=== PATIENT | female | born 1995 | race Caucasian/White ===

== ENCOUNTER 2021-11-11 14:59 | Outpatient (CLI) | payer OTHER, MEDICAID | END 2021-11-11 15:00 | disposition home or self-care (01) | LOC: LAB 14:59 | PROVIDERS: ATTEND Nurse Practitioner Obstetrics & Gynecology | DX: R33.8 Other retention of urine (principal) | CPT/HCPCS: 36415; 85049 ==

== ENCOUNTER 2021-12-06 14:51 | Outpatient (CLI) | payer OTHER, MEDICAID ==
[2021-12-06 15:14] LABS: BASOPHILS % (AUTO) 0.1 %; EOSINOPHILS % (AUTO) 0.5 %; HCT - HEMATOCRIT 39.6 % (37.0-47.0); MEAN CORPUSCULAR HEMOGLOBIN 30.7 pg (27.0-31.0); MEAN CORPUSCULAR HGB CONC 32.8 g/dL (32.0-36.0); MEAN CORPUSCULAR VOLUME 93.4 fL (81.0-99.0); MEAN PLATELET VOLUME 12.6 fL (7.9-10.8); MONOCYTES # (AUTO) 0.5 10^3/uL (0.0-1.0); MONOCYTES % (AUTO) 6.1 %; NEUTROPHILS # (AUTO) 7.2 10^3/uL (1.5-6.6); NEUTROPHILS % (AUTO) 81.7 %; PLT - PLATELET COUNT 123 10^3/uL (130-450); RED BLOOD COUNT 4.24 10^6/uL (4.20-5.40); RED CELL DISTRIBUTION WIDTH 12.7 % (12.0-15.0); WHITE BLOOD COUNT 8.9 x10^3/uL (4.8-10.8)
[2021-12-06 15:21] VITALS: BP 109/69
[2021-12-06 15:27] LABS: BILIRUBIN,URINE NEGATIVE (NEGATIVE); GLUCOSE, URINE (UA) NEGATIVE (NEGATIVE); KETONES,URINE (UA) NEGATIVE (NEGATIVE); LEUKOCYTE ESTERASE, URINE NEGATIVE (NEGATIVE); NITRITE,URINE NEGATIVE (NEGATIVE); OCCULT BLOOD,URINE NEGATIVE (NEGATIVE); PROTEIN,URINE NEGATIVE (NEGATIVE); UROBILINOGEN,URINE 0.2 (NORMAL) E.U./dL (NORMAL)
[2021-12-06 15:28] LABS: CLARITY,URINE CLEAR (CLEAR)
[2021-12-06 15:28] LABS: ALBUMIN 3.1 g/dL (3.2-5.5); BILIRUBIN,TOTAL 0.6 mg/dL (0.2-1.0); CREATININE 0.7 mg/dL (0.4-1.0); POTASSIUM 3.7 mmol/L (3.5-5.0); TOTAL PROTEIN 6.3 g/dL (6.7-8.2)
[2021-12-06 15:38] LABS: BACTERIA,URINE Few /HPF (None Seen); RBC,URINE 0-5 /HPF (0-5); SQUAMOUS EPITHELIAL CELL,UR MOD Squamous (<= Few); WBC,URINE 0-3 /HPF (0-5)
--- NOTE | 2021-12-06 16:09 | PROVIDER PROGRESS NOTE ---
- HPI Chief Complaint: Pain, non-labor Current : Vital Signs Temperature 36.6 C 12/06/21 15:20 Heart Rate 93 12/06/21 15:20 Respiratory Rate 17 12/06/21 15:20 Blood Pressure 109/69 12/06/21 15:20 O2 Saturation 100 12/06/21 15:20 Temperature 36.6 C 12/06/21 15:21 Heart Rate 93 12/06/21 15:20 Respiratory Rate 17 12/06/21 15:20 Blood Pressure 109/69 12/06/21 15:20 O2 Saturation 100 12/06/21 15:20 If not protocol: Oxygen Flow, liters/minute - Procedures OB Procedure Performed: NST Diagnosis/Indication for NST: labor - Plan Plan: HPI: Verónica is a 26yo @ 36.3wks gestation who presents to [facility] with concerns for upper abdominal pain that is sharp, wave-like and has been present intermittently since early this morning at 0330am. She denies vaginal bleeding or leakage of fluid. She reports +FM. She states she can feel contractions occasionally that just seem like raymond calvin contractions and the pain she is experiencing currently is not the same. She rates the pain 8/10. She has taken TUMS, eaten fresh pineapple, rested, taken a warm bath, and was able to get a little relief for a couple of hours this morning but then it came back today around 1130 and seemed more severe. She denies fever, body aches, or chills. She denies constipation or diarrhea. She reports mild headache but states she gets them occasionally because she does not wear her glasses when she should. She states she feels adequately hydrated and she denies urinary symptoms. NST performed 12/06/2021 NST read 12/06/2021 NST reactive. FHR baseline 130, moderate variability, + accels, no decels One contraction appreciated via tocometry which pt appreciates as mild. Soft resting tone. SVE 1/50/high, vertex. CBC WNL (PLT 124 secondary to gestational thrombocytopenia - stable from last draw 2 weeks ago) CMP WNL Vital signs WNL. Normocephalic, atraumatic, heart RRR w/o M/G/R, lungs CTAB, abdomen gravid soft and nontender, trace edema to LE's bilaterally. Mood is good. Assessment: 26yo @ 36.3wks gestation Gestational thombocytopenia Mid upper abdominal pain - labor and pre-eclamspia ruled out. Suspect gas pains. Plan: Pt released home with precautions. Recommended simethicone PRN pain and continuation of TUMS PRN. Reviewed warning s/sx and when to present. Pt verbalized understanding and agrees to above plan. She denies further questions or concerns at this time. FINAL DIAGNOSIS: Abdominal pain
== END 2021-12-06 16:20 | disposition home or self-care (01) ==
LOC: WFO 14:51 → FBP 14:54 → WFO 16:20
PROVIDERS: ATTEND Nurse Practitioner Obstetrics & Gynecology
DX: O99.891 Other specified diseases and conditions complicating pregnancy (principal); R10.9 Unspecified abdominal pain; O99.113 Other diseases of the blood and blood-forming organs and certain disorders involving the immune mechanism complicating pregnancy, third trimester; D69.6 Thrombocytopenia, unspecified; Z3A.36 36 weeks gestation of pregnancy
CPT/HCPCS: 36415; 59025; 80053; 81001; 85025; 99215

== ENCOUNTER 2021-12-27 11:55 | Inpatient (IN) | payer OTHER, MEDICAID ==
--- NOTE | 2021-12-27 12:31 | PROCEDURE REPORT ---
- HPI Diagnosis/Indication for NST: Other - NST Procedure NST Procedure Start Time 15:17 Stop Time 16:15 - Results and Plan Plan: Verónica presents with c/o contractions. She reports contractions have increased in frequency and intensity since early this morning. She lost her mucus plug this morning. She denies vaginal bleeding but did experience some pink discharge when she went to the bathroom last. She does report some leakage of clear fluid this morning and again just now after using the bathroom. She reports +FM. She states the majority of her contractions are in her back but does occasionally feel them in her front as well. NST performed 12/27/2021 NST read 12/27/2021 NST reactive. FHR baseline 140s, moderate variability, + accels, no decels Contractions palpate moderate every 5-8 minutes with soft resting tone SVE 3/90/-1, posterior and vertex. ROM plus - negative Pt admitted for expectant management. She is GBS positive and had difficulty with transportation secondary to poor road conditions. Pt verbalized understanding and agrees to above plan. She denies further questions or concerns at this time.
[2021-12-27 12:57] LABS: RUPTURE OF MEMBRANES PLUS NEGATIVE (NEGATIVE)
[2021-12-27] MEDS ORDERED: NIFEdipine 10 MG CAPSULE PO PRN (13:18)
[2021-12-27] MEDS ORDERED: METHYLERGONOVINE 0.2 MG/ML VIAL IM PRN (13:18)
[2021-12-27] MEDS ORDERED: OXYTOCIN/SODIUM CHLORIDE 500 ML IV PRN (13:18)
[2021-12-27] MEDS ORDERED: miSOPROStoL 200 MCG TABLET PR PRN (13:18)
[2021-12-27] MEDS ORDERED: hydrALAZINE INJ 20 MG/ML VIAL IVP PRN ×2 (13:18)
[2021-12-27] MEDS ORDERED: fentaNYL 100 MCG/2 ML VIAL IVP PRN (13:18)
[2021-12-27] MEDS ORDERED: miSOPROStoL 200 MCG TABLET BC PRN (13:18)
[2021-12-27] MEDS ORDERED: OXYTOCIN 10 UNIT/ML VIAL IM PRN (13:18)
[2021-12-27] MEDS ORDERED: TRANEXAMIC ACID IN NACL 1,000 MG/100 ML BAG IV PRN (13:18)
[2021-12-27] MEDS ORDERED: SODIUM CHLORIDE FLUSH 0.9% 10 ML SYRINGE IVP PRN (13:18)
[2021-12-27] MEDS ORDERED: lidocaine 1% 20 ML MDV ID PRN (13:18)
[2021-12-27] MEDS ORDERED: LABETALOL 20 MG/4 ML SYRINGE IVP PRN ×3 (13:18)
[2021-12-27] MEDS ORDERED: CARBOPROST TROMETHAMINE 250 MCG/ML AMP IM PRN (13:18)
[2021-12-27] MEDS ORDERED: TERBUTALINE 1 MG/ML VIAL SUBQ PRN (13:18)
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
[2021-12-27] MEDS ORDERED: AMPICILLIN 2 GM in SODIUM CHLORIDE 0.9% MINIBAG 100 ML IV ONE (14:00)
[2021-12-27] MEDS ORDERED: SODIUM CHLORIDE FLUSH 0.9% 10 ML SYRINGE IVP SCH (14:00)
[2021-12-27 14:09] LABS: BASOPHILS % (AUTO) 0.2 %; EOSINOPHILS % (AUTO) 0.2 %; HCT - HEMATOCRIT 38.9 % (37.0-47.0); HGB - HEMOGLOBIN 13.1 g/dL (12.0-16.0); LYMPHOCYTES # (AUTO) 0.9 10^3/uL (1.5-3.5); LYMPHOCYTES % (AUTO) 6.9 %; MEAN CORPUSCULAR HEMOGLOBIN 31.4 pg (27.0-31.0); MEAN CORPUSCULAR HGB CONC 33.7 g/dL (32.0-36.0); MEAN CORPUSCULAR VOLUME 93.3 fL (81.0-99.0); MEAN PLATELET VOLUME 13.5 fL (7.9-10.8); MONOCYTES # (AUTO) 0.7 10^3/uL (0.0-1.0); NEUTROPHILS # (AUTO) 11.3 10^3/uL (1.5-6.6); NEUTROPHILS % (AUTO) 87.2 %; PLT - PLATELET COUNT 140 10^3/uL (130-450); RED BLOOD COUNT 4.17 10^6/uL (4.20-5.40); RED CELL DISTRIBUTION WIDTH 12.8 % (12.0-15.0); WHITE BLOOD COUNT 12.9 x10^3/uL (4.8-10.8)
[2021-12-27] MEDS ORDERED: LACTATED RINGERS 1,000 ML ONE (14:15)
[2021-12-27] MEDS: AMPICILLIN 1 GM in SODIUM CHLORIDE 0.9% MINIBAG 100 ML IV SCH ×2 (17:55→22:05)
--- NOTE | 2021-12-27 18:52 | PROVIDER PROGRESS NOTE ---
Labor Progress Note - Uterine Monitoring Uterine Monitoring Mode: positive: External toco Contraction Frequency (min/apart): 5-7 Contraction Intensity: positive: Moderate Uterine Resting Tone: positive: Soft - Monitoring Monitor Mode: positive: External ultrasound Heart Rate Baseline: 130 Heart Rate Variability: positive: Moderate (6-25 bmp) Accelerations: positive: Present, 15x15 Decelerations: positive: None Strip Review: positive: Category I - Vaginal Exam Dilation (in cm): 4 Effacement (%): 90 Station: -1 Cervical Position: Posterior - Labor Progress Note Labor Progress Note/Additional Text: S: Breathing through contractions. Feeling the contractions are getting longer but remaining about the same in intensity. She is coping well and her mom is supportive at the bedside. O: FHR baseline 130s, moderate variability, + accels, no decels Contractions palpate moderate every 5-7 minutes with soft resting tone SVE 4/90/-1, posterior. Vertex. AROM moderate amount of clear fluid A: 26yo @ 39.3wks gestation by LMP c/w 8.6wk U/S Active labor GBS positive FHR Category I P: Continue expectant management. Intermittent heart rate auscultation. Jacuzzi PRN. Nitrous oxide PRN. Epidural per maternal request. Anticipate .
[2021-12-27] MEDS ORDERED: ROPIVACAINE 0.2% 200 MG/100 ML BAG EP ONE (19:43)
[2021-12-27] MEDS ORDERED: LACTATED RINGERS 1,000 ML IV SCH (20:00)
--- NOTE | 2021-12-27 20:37 | ANESTHESIA ---
Pre-Anesthesia VS, & Labs - Diagnosis active labor - Procedure labor epidural Vital Signs: Temp Pulse Resp BP Pulse Ox O2 Flow Rate 36.8 C 87 18 124/81 H 12/27/21 17:04 12/27/21 17:04 12/27/21 12:38 12/27/21 12:38 Height: 5 ft 4 in Weight (kg): 71.668 kg Body Mass Index: 27.1 BMI Classification: Overweight - NPO Other (eating and drinking until epidural) - Is Patient ?: Yes - Lab Results Current Lab Results: Laboratory Tests 12/27/21 15:21: Blood Type Recheck A POSITIVE 12/27/21 12:50: WBC 12.9 H, RBC 4.17 L, Hgb 13.1, Hct 38.9, MCV 93.3, MCH 31.4 H , MCHC 33.7, RDW 12.8, Plt Count 140, MPV 13.5 H, Neut # (Auto) 11.3 H, Lymph # (Auto) 0.9 L, Tripp # (Auto) 0.7, Eos # (Auto) 0.0, Baso # (Auto) 0.0, Absolute Nucleated RBC 0.00, Nucleated RBC % 0.0 12/27/21 12:50: Blood Type A POSITIVE, Antibody Screen NEGATIVE Fish Bones: 12/27/21 12:50 Home Medications and Allergies Active Medications Carboprost Tromethamine (Carboprost Tromethamine 250 Mcg/Ml Amp) 250 mcg IM .ONCE PRN PRN Reason: Hemorrhage Fentanyl (Fentanyl 100 Mcg/2 Ml Vial) 50 mcg IVP Q1H PRN PRN Reason: Severe Pain (score 7-10) Hydralazine HCl (Hydralazine Inj 20 Mg/Ml Vial) 5 - 10 mg IVP Q20M PRN; Protocol PRN Reason: SBP> or= 160 OR DBP> or= 110 Hydralazine HCl (Hydralazine Inj 20 Mg/Ml Vial) 10 mg IVP .ONCE PRN; Protocol PRN Reason: SBP> or= 160 OR DBP> or= 110 Oxytocin/Sodium Chloride (Pitocin/Sodium Chloride) 500 mls @ 999 mls/hr IV PRN PRN; Protocol PRN Reason: POST- HEMORR PREVENTION Tranexamic Acid (Tranexamic 1,000 Mg/100ml-Nacl) 1,000 mg in 100 mls @ 600 mls/hr IV Q30M PRN PRN Reason: EBL >1200mL and within 3hr Ampicillin Sodium 1 gm/ Sodium (Chloride) 100 mls @ 200 mls/hr IV Q4H [facility] Last Infusion: 12/27/21 18:25 Dose: Infused Lactated Ringer's (Lr) 1,000 mls @ 125 mls/hr IV .Q8H [facility] Last Admin: 12/27/21 20:00 Dose: 125 mls/hr Labetalol HCl (Labetalol 20 Mg/4 Ml Syringe) 20 - 80 mg IVP Q10M PRN; Protocol PRN Reason: SBP> or= 160 OR DBP> or= 110 Labetalol HCl (Labetalol 20 Mg/4 Ml Syringe) 20 mg IVP .ONCE PRN; Protocol PRN Reason: SBP> or= 160 OR DBP> or= 110 Labetalol HCl (Labetalol 20 Mg/4 Ml Syringe) 20 - 40 mg IVP Q10M PRN; Protocol PRN Reason: SBP> or= 160 OR DBP> or= 110 Lidocaine HCl (Lidocaine 1% 20 Ml Mdv) 20 ml ID .ONCE PRN PRN Reason: PERINEAL REPAIR Stop: 12/30/21 13:18 Methylergonovine Maleate (Methylergonovine 0.2 Mg/Ml Vial) 0.2 mg IM .ONCE PRN PRN Reason: Hemorrhage Misoprostol (Misoprostol 200 Mcg Tablet) 600 mcg BC .ONCE PRN PRN Reason: Hemorrhage Misoprostol (Misoprostol 200 Mcg Tablet) 800 mcg FL .ONCE PRN PRN Reason: Hemorrhage Nifedipine (Nifedipine 10 Mg Capsule) 10 - 20 mg PO Q20M PRN; Protocol PRN Reason: SBP> or= 160 OR DBP> or= 110 Oxytocin (Oxytocin 10 Unit/Ml Vial) 10 unit IM .ONCE PRN PRN Reason: Step One if no IV access. Sodium Chloride (Sodium Chloride Flush 0.9% 10 Ml Syringe) 10 ml IVP PRN PRN PRN Reason: NEEDED PER PROVIDER ORDERS Sodium Chloride (Sodium Chloride Flush 0.9% 10 Ml Syringe) 10 ml IVP Q8H [facility] Last Admin: 12/27/21 17:56 Dose: 10 ml Terbutaline Sulfate (Terbutaline 1 Mg/Ml Vial) 0.25 mg SUBQ .ONCE PRN PRN Reason: Tachystole Allergies/Adverse Reactions: Allergies Allergy/AdvReac Type Severity Reaction Status Date / Time Pertussis Vaccines AdvReac Anaphylaxis Verified 12/27/21 12:57 Anes History & Medical History - Anesthetic History Anesthesia Complications: reports: No previous complications Family history of Anesthesia Complications: Denies Family history of Malignant Hyperthermia: Denies - Medical History Cardiovascular: reports: None (gestational thrombocytopenia) Smoking Status: Never smoker - Obstetrical History : 2 Parity: 1 Events: reports: None Complications: reports: None Exam General: Alert, Oriented x3, Cooperative Dental: WNL Mouth Openin Fingerbreadth Neck Mobility: Normal Mallampati classification: I Thyromental Distance: 4-6 cm Respiratory: Lungs clear Cardiovascular: Regular rate Plan Anesthesia Type: Epidural Consent for Procedure(s) Verified and Reviewed: Yes Code Status: Attempt Resuscitation ASA classification: 2-Mild systemic disease Is this case an emergency?: No
--- NOTE | 2021-12-27 20:38 | ANESTHESIA PROCEDURE NOTE ---
Anesthesia Epidural Template - Patient Report Patient Reports: positive: Pain controlled - Plan Plan: positive: Continue current management
[2021-12-27] MEDS ORDERED: NALOXONE 0.4 MG/ML VIAL IVP PRN (20:39)
[2021-12-27] MEDS ORDERED: NALBUPHINE 10 MG/ML AMP IVP PRN (20:39)
[2021-12-27] MEDS ORDERED: ePHEDrine 50 MG/ML VIAL IVP PRN (20:39)
[2021-12-27] MEDS ORDERED: ONDANSETRON 4 MG/2 ML VIAL IVP PRN (20:39)
[2021-12-27] MEDS ORDERED: diphenhydrAMINE INJ 50 MG/ML VIAL IVP PRN (20:39)
[2021-12-27] MEDS ORDERED: METOCLOPRAMIDE 10 MG/2 ML VIAL IVP PRN (20:39)
[2021-12-28] MEDS ORDERED: WITCH HAZEL/GLYCERIN 1 PAD TOP PRN (00:27)
[2021-12-28] MEDS ORDERED: HYDROCORTISONE 1% CREAM 28 GM TUBE PR PRN (00:27)
--- NOTE | 2021-12-28 00:33 | DELIVERY NOTE ---
Delivery Note - Labor Labor: positive: Augmented by ARM - Infant Delivery Method Delivery Method: positive: Spontaneous vaginal delivery - Presentation Presentation: positive: Vertex, ANNIE - right occiput anterior - Nuchal Cord Nuchal Cord: positive: None - Amniotic Fluid Description Amniotic Fluid Description: positive: Clear - Episiotomy Type Episiotomy Type: positive: None - Laceration Laceration: positive: None - Delivery Outcome Delivery Outcome: positive: Livebirth - Mellette : positive: Placed in direct skin contact with mother, Stimulated, Warmed, [place] used sex: positive: Female - Cord Cord: positive: 3 vessels - Placenta Placenta: positive: Intact, Spontaneous - Estimated Blood Loss Estimated Blood Loss (in cc): 300 - Post Delivery Events Post Delivery Events: positive: No post delivery events - Delivery Comments (Free Text/Narrative) Delivery Comments (Free Text/Narrative): Labor: This 26yo @ 39.4wks gestation by LMP c/w first trimester ultrasound presented on 12/27/2021 with c/o contractions. Upon arrival she was noted to be 3/90/-1, posterior and vertex with intact membranes. She was found to contraction every 5-8 minutes with soft resting tone. She was admitted for expectant management. She was augmented with AROM at 1830 on 12/27/2021 for a moderate amount of clear fluid. Epidural placed per maternal request. She received adequate GBS prophylaxis and is s/p 3 doses of ampicillin per protocol. She progressed spontaneously to c/c/+2 and pushing at 2358. : Normal of viable male on 12/28/2021 @ 0005. No nuchal cord. Apgars were 8/9 at 1 and 5 minutes respectively. Mellette stimulated, dried, and placed skin to skin. The umbilical cord was allowed to stop pulsating at which time it was doubly clamped by CNM and cut by the patient. Pitocin initiated for hemostatis. Gentle cord traction and fundal massage applied for active management of the third stage. Placenta delivered spontaneously and intact at 0011. 3VC. Cord blood was obtained. EBL 300mL. Fourth stage: Uterine fundus firm and there is no excessive bleeding. The perineum, cervix and vagina were inspected and noted to be intact. initiated. Family bonding well. Both mother and baby were left in stable condition.
[2021-12-28] MEDS: ACETAMINOPHEN 500 MG TABLET PO SCH ×4 (01:03→21:07)
[2021-12-28] MEDS: IBUPROFEN 800 MG TABLET PO SCH ×4 (01:03→21:07)
[2021-12-28] MEDS: DOCUSATE SODIUM 100 MG CAPSULE PO SCH (21:07)
[2021-12-29] MEDS: IBUPROFEN 800 MG TABLET PO SCH ×2 (02:57→08:09)
[2021-12-29] MEDS: ACETAMINOPHEN 500 MG TABLET PO SCH ×2 (05:24→13:02)
[2021-12-29] MEDS: DOCUSATE SODIUM 100 MG CAPSULE PO SCH (08:09)
--- NOTE | 2021-12-29 08:28 | Discharge Plan ---
Discharge Plan Problem Reviewed?: Yes Disposition: Home, Self Care Condition: Good Diet: Regular Activity Restrictions: No Restrictions Shower Restrictions: No Driving Restrictions: No Weight Bearing: Full Weight No Smoking: If you smoke, Please STOP! Call for help. Follow-up with: Jennifer Sewell CNM, ARNP [Provider Admit Priv/Credential] - 1 Week (phone visit scheduled 01/07/22 @ 11:45am)
--- NOTE | 2021-12-29 08:33 | DISCHARGE SUMMARY ---
Discharge Summary Condition at Discharge: Good Discharge Disposition: 01 Home, Self Care - HOSPITAL COURSE Hospital Course: Date of Admission: 12/27/2021 Date of Discharge: 12/29/2021 Diagnosis on Admission: 1. 26yo @ 39.0wks gestation 2. Active labor 3. Gestational thrombocytopenia 4. GBS negative 5. FHR Category I Diagnosis on Discharge: 1. 26yo PPD#1 s/p TSVD viable male 2. Intact perineum 3. Normal recovery Brief history: She is a patient of [facility] who presented on 12/27/2021 with c/o contractions. She was noted to contract ever 3-5 minutes and her cervix was 4/90/-1 and vertex with intact membranes. AROM for labor augmentation for a moderate amount of clear fluid. Epidural placed per maternal request. Pt progressed to spontaneously deliver a viable male infant on 12/28/2021 at 0005. EBL 300mL. Apgars were 8/9 at 1 and 5 minutes respectively. Perineum intact. She has been doing well in her course. She is ambulating and tolerating a regular diet. She is urinating without difficulty and her lochia is normal. Her pain is well controlled with oral medications. She is bonding well with her baby and without difficulty. She will be discharged home today on day #1 with instructions to continue taking her vitamin while and to continue taking ibuprofen and tylenol over the counter as needed for pain management. She intends to follow up with myself at [facility] in [place] in 1 week and again at 6 weeks or sooner if needed. She has been given precautions to call if she has any worsening fevers, chills, abdominal pain, increased vaginal bleeding or foul smelling vaginal lochia. Physical exam: Normocephalic, atraumatic. Heart RRR w/o M/G/R, lungs CTAB, abdomen soft and nontender with fundus firm at U-1. Perineum intact, light lochia rubra. Bilateral LE's no edema. Mood is good. - ALLERGIES Allergies/Adverse Reactions: Allergies Allergy/AdvReac Type Severity Reaction Status Date / Time Pertussis Vaccines AdvReac Anaphylaxis Verified 12/27/21 12:57 - LABS Result Diagrams: 12/27/21 12:50
[2021-12-29 08:50] VITALS: BP 121/69
--- NOTE | 2021-12-29 13:38 | Labor Flowsheet ---
Labor Flowsheet Datetime Report Generated by CPN: 12/29/2021 13:38 Datetime: 12/29/2021 00:27 VITAL SIGNS NBP Sys/Mary Jo/Mean (mmHg): 118 : 68 : 80 Pulse: 75 Datetime: 12/28/2021 00:33 Respirations: 22 Datetime: 12/28/2021 00:15 MEDICATIONS Pitocin (milliunits): Started @ (Annotations: Placenta has been delivered; pitocin bolus infusing) Datetime: 12/28/2021 00:08 Membranes Ruptured Date/Time: 12/27/2021 18:30 Cervical Ripening Agents Other: none Datetime: 12/28/2021 00:03 Pushing Progress: with Pushing; Pushing Effectively with Contractions Datetime: 12/28/2021 00:01 ASSESSMENT A Monitor Mode: Telemetry FHR Baseline Rate : 110 Variability: Moderate 6-25 bpm Accelerations: 10X10 Decelerations: Variable Category: Category II Comments: Pushing Pushing Position: Pushing with Contractions LaborFlag: Labor Datetime: 12/27/2021 23:58 VAGINAL EXAM Dilatation (cm): 10.0 Effacement (%): 100 Station: 2 Exam by: BRADFORD Sewell TEACHING Instructional Method: Demo; Patient Instructed; Family/Support Person Instructed; Verbalized Unders tanding Plan of Care: Plan of Care Discussed; Vaginal Delivery STAGE 2 Pushing: Coached on Pushing; No Urge to Push Datetime: 12/27/2021 23:56 Stage of : Labor I/O Interventions: Elam Discontinued (Annotations: 500ml urine in elam; elam removed) Provider Reviewed Strip: Yes Strip Reviewed by: BRADFORD Sewell COMMUNICATION Communication: Provider at Bedside Provider Notified (Name): Donato Notification Reason: Status Update; Status; Labor Status Communication Comments: Provider here for delivery Datetime: 12/27/2021 23:50 Actions for Decelerations: Side to Side PATIENT CARE Patient Position/Activity: HOB Lowered; Left Lateral Datetime: 12/27/2021 23:45 UTERINE ACTIVITY Monitor Mode: External Monitor Interventions for UA: [place] Adjusted Frequency (min): 2-3.5 Quality: Strong Duration (sec): 60-80 Pattern: Normal: <= 5 Contractions in 10 Minutes Resting Tone (Palpate): Relaxed FHR Baseline Changes: No Baseline Change PAIN Pain Scale: 0 Pain Presence: None/Denies Pain Type: N/A Pain Goal: 4 Pain Relief Measures: Epidural Given Pain Coping: Talking Through Contractions Comfort Measures: Family Support Datetime: 12/27/2021 23:35 Vaginal Bleeding: Normal Show Cervix, Consistency: Soft Cervix, Position: Anterior Datetime: 12/27/2021 23:30 ASSESSMENT B FHR Baseline Changes: No Baseline Change Variability: Moderate 6-25 bpm Accelerations: 15X15 Decelerations: None Category: Category I Datetime: 12/27/2021 23:28 Temperature (C): 36.0 Datetime: 12/27/2021 23:16 Anesthesia Level Check: T6- Xyphoid Anesthesia Comments: Comfortable with epidural Datetime: 12/27/2021 21:35 Temperature Route: Oral Datetime: 12/27/2021 20:07 Epidural Procedure Other: Pump Started Datetime: 12/27/2021 20:05 Epidural Positioning: Side Lying Datetime: 12/27/2021 19:58 Epidural Procedure: Test Dose Datetime: 12/27/2021 19:52 PROCEDURE TIME OUT Procedure Verify: Correct Patient Identity; Accurate Procedure Consent Form; Agreement on Procedure to be Done; Correct Patient Position Datetime: 12/27/2021 19:49 SpO2 (%): 99 Datetime: 12/27/2021 19:47 Pain Location: Abdomen Datetime: 12/27/2021 19:44 ANESTHESIA Anesthesia Plans: Epidural Datetime: 12/27/2021 19:00 Pain Assessment Comments: Nitrous set up and instructed in use. Datetime: 12/27/2021 18:32 Membrane Status: Ruptured Membranes Rupture Method: Artificial Amniotic Fluid Color: Clear Amniotic Fluid Amount: Moderate Amniotic Fluid Odor: Normal Datetime: 12/27/2021 16:30 Contraction Comments: breathing through some contractions Datetime: 12/27/2021 14:19 Antibiotics: Ampicillin IV 2 Gm
== END 2021-12-29 13:35 | disposition home or self-care (01) | DRG 807 ==
LOC: WFO 11:55 → FBP 11:56 → WFO 13:17 → FBP 13:18
PROVIDERS: ADMIT Nurse Practitioner Obstetrics & Gynecology; ATTEND Nurse Practitioner Obstetrics & Gynecology
PROC: 10907ZC Drainage of Amniotic Fluid, Therapeutic from Products of Conception, Via Natural or Artificial Opening (ICD-10-PCS; principal; 2021-12-27)
PROC: 10E0XZZ Delivery of Products of Conception, External Approach (ICD-10-PCS; 2021-12-28)
DX: O99.12 Other diseases of the blood and blood-forming organs and certain disorders involving the immune mechanism complicating childbirth (principal); Z37.0 Single live birth; D69.6 Thrombocytopenia, unspecified; O99.824 Streptococcus B carrier state complicating childbirth; Z3A.39 39 weeks gestation of pregnancy
CPT/HCPCS: 84112; 85025; 86850; 86900; 86901; 99215; A9270; J7120; 99213